=== PATIENT | female | born 1970 | race African-American/Black ===

== ENCOUNTER 2018-03-12 02:24 | Emergency (ER) | payer OTHER, MEDICAID ==
[~2018-03-12] VITALS: Ht 165.1 cm; Wt 118.0 kg
[~2018-03-12 02:24] MED LIST: ATEN-42 PO
[2018-03-12] MEDS ORDERED: KETOROLAC 60MG/2ML VIAL IM ONE (03:15)
[2018-03-12 05:42] VITALS: BP 134/66
== END 2018-03-12 08:30 | disposition home or self-care (01) ==
LOC: ER 08:05
DX: R51 Headache (principal); I10 Essential (primary) hypertension; F12.10 Cannabis abuse, uncomplicated; F17.200 Nicotine dependence, unspecified, uncomplicated; Z90.49 Acquired absence of other specified parts of digestive tract; Z88.6 Allergy status to analgesic agent
CPT/HCPCS: 81025; 82962; 96372; 99283; J1885; Z7610